=== PATIENT | male | born 1940 | race Caucasian/White ===

== ENCOUNTER → 2018-05-13 | Outpatient (CLI) | payer OTHER ==
[~2018-05-13] MED LIST: AMLO2.5T3 PO; LOSA50TA7 PO
[2018-05-13 12:55] LABS: INTERNATIONAL NORMALIZED RATIO 0.98 (0.93-1.1); PROTHROMBIN TIME 10.4 Seconds (9.6-11.5)
[2018-05-13 13:12] LABS: CULTURE INDICATED? YES; MICROSCOPIC INDICATED
[2018-05-13 13:19] LABS: HEMOGLOBIN A1C 5.4 % (4.2-6.3)
[2018-05-14 10:02] LABS: BASOPHILS # (AUTO) 0.06 x10^3/uL (0-0.1); BASOPHILS % (AUTO) 1 % (0-1); EOSINOPHILS # (AUTO) 0.11 x10^3/uL (0-0.4); EOSINOPHILS % (AUTO) 2 % (1-7); LYMPHOCYTES # (AUTO) 1.22 x10^3/uL (1-3.4); LYMPHOCYTES % (AUTO) 24 % (22-44); MD NO; MEAN CORPUSCULAR HEMOGLOBIN 32.5 pg (27.5-34.5); MEAN CORPUSCULAR HGB CONC 34.7 g/dL (33.2-36.2); MEAN CORPUSCULAR VOLUME 93.8 fL (81-97); MEAN PLATELET VOLUME 8.4 fL (7.4-10.4); MONOCYTES # (AUTO) 0.48 x10^3/uL (0.2-0.8); MONOCYTES % (AUTO) 9 % (2-9); NEUTROPHILS # (AUTO) 3.29 x10^3/uL (1.8-6.8); NEUTROPHILS % (AUTO) 64 % (42-75); PLATELET COUNT 249 x10^3/uL (130-400); RED BLOOD COUNT 4.55 x10^6/uL (4.38-5.82); RED CELL DISTRIBUTION WIDTH 12.9 % (9.4-14.8)
[2018-05-14 10:03] LABS: ALANINE AMINOTRANSFERASE 20 U/L (12-78); ALBUMIN 3.8 g/dL (3.4-5.0); ANION GAP 7 mmol/L (5-15); CALCIUM 8.5 mg/dL (8.5-10.1); CHLORIDE 105 mmol/L (98-107); CREATININE 0.75 mg/dL (0.7-1.3)
[2018-05-14 10:06] LABS: ALKALINE PHOSPHATASE 82 U/L (45-117); BILIRUBIN,TOTAL 0.4 mg/dL (0.2-1.0); TOTAL PROTEIN 7.3 g/dL (6.4-8.2)
== END | disposition home or self-care (01) ==
LOC: STAR 11:22
PROVIDERS: ATTEND Orthopaedic Surgery
DX: Z01.818 Encounter for other preprocedural examination (principal); M17.12 Unilateral primary osteoarthritis, left knee
CPT/HCPCS: 36415; 80053; 81001; 83036; 85025; 85610; 85730; 87077; 87081; 87086; 87186

== ENCOUNTER 2018-05-20 11:04 | Inpatient (IN) | payer OTHER ==
[~2018-05-20] VITALS: Ht 177.8 cm; Wt 74.1 kg
[~2018-05-20 11:04] MED LIST changes: +CEFAZOLIN 1,000 MG ONE; +EPINEPHRINE 1 MG/ML, 1ML ONE; +FENTANYL PF 250 MCG/5ML ONE; +GLYCOPYRROLATE 0.2MG/1ML, 5ML ONE; +KETOROLAC 60 MG/2 ML ONE; +MIDAZOLAM 1 MG/ML, 2ML ONE; +NEOSTIGMINE 1 MG/ML, 10ML ONE; +PROPOFOL 10 MG/ML, 20ML ONE; +ROCURONIUM 10MG/ML,5ML ONE; +ROPIvacaine/PF 0.2%, 20 ML ONE; +ROPIvacaine/PF 0.5%, 30 ML ONE; +SODIUM CHLORIDE 0.9% 100 ML ONE; +TRANEXAMIC ACID 100 MG/ML, 10ML ONE; +VANCOMYCIN 1,000 MG ONE
[2018-05-20 11:28] VITALS: BP 145/82
[2018-05-20] MEDS ORDERED: LACTATED RINGERS 1,000 ML IV SCH (11:32)
[2018-05-20] MEDS ORDERED: ACETAMINOPHEN 500 MG TABLET PO ONE (12:00)
[2018-05-20] MEDS ORDERED: MORPHINE SULFATE 4 MG/ML, 1ML IVPush PRN (12:00)
[2018-05-20] MEDS ORDERED: LABETALOL 5MG/ML, 20ML IV PRN (12:00)
[2018-05-20] MEDS ORDERED: hydrALAzine 20 MG/ML, 1ML IV PRN (12:00)
[2018-05-20] MEDS ORDERED: OXYcodone 5 MG/5 ML ORAL.SOL UDC PO PRN (12:00)
[2018-05-20] MEDS ORDERED: GABAPENTIN 300 MG CAPSULE PO ONE (12:00)
[2018-05-20] MEDS ORDERED: PROMETHAZINE 12.5 MG SUPP PR PRN (12:00)
[2018-05-20] MEDS ORDERED: SCOPOLAMINE PATCH, 1.5MG PATCH.TD72 TD ONE ×2 (12:00→13:00)
[2018-05-20] MEDS ORDERED: HYDROmorphone 2 MG/ML, 1ML IVPush PRN (12:00)
[2018-05-20] MEDS ORDERED: PROMETHAZINE 25 MG/ML, 1ML IM PRN ×2 (12:00)
[2018-05-20] MEDS ORDERED: ONDANSETRON ODT 8 MG PO PRN (12:00)
[2018-05-20] MEDS ORDERED: ONDANSETRON 2MG/ML, 2ML IV PRN ×2 (12:00→13:00)
[2018-05-20] MEDS ORDERED: MEPERIDINE/PF 25MG/0.5ML IVPush PRN (12:00)
[2018-05-20] MEDS ORDERED: PROMETHAZINE 25 MG/ML, 1ML IV PRN (12:00)
[2018-05-20] MEDS ORDERED: PROMETHAZINE 25 MG SUPP PR PRN (12:00)
[2018-05-20] MEDS ORDERED: PHENYLEPHRINE 10 MG/ML ONE (12:50)
[2018-05-20] MEDS: NS + 20MEQ KCL 1,000 ML IV SCH (12:55)
[2018-05-20] MEDS: CEFAZOLIN PMX 2GM/50ML 50 ML IVPB SCH ×2 (13:00→20:50)
[2018-05-20] MEDS ORDERED: MAGNESIUM HYDROXIDE 8%, 30ML UDC PO PRN (13:00)
[2018-05-20] MEDS ORDERED: ONDANSETRON 4 MG TABLET PO PRN (13:00)
[2018-05-20] MEDS ORDERED: BISACODYL 10 MG SUPP PR PRN (13:00)
[2018-05-20] MEDS ORDERED: DIPHENHYDRAMINE 50 MG CAPSULE PO PRN (13:00)
[2018-05-20] MEDS ORDERED: OXYcodone IR 5MG TABLET PO PRN (13:00)
[2018-05-20] MEDS ORDERED: HYDROmorphone 1 MG/ML, 1ML IV PRN (13:00)
[2018-05-20] MEDS ORDERED: SENNA/DOCUSATE TABLET PO PRN (13:00)
[2018-05-20] MEDS ORDERED: ACETAMINOPHEN 650 MG/20.3 ML UDC PO PRN (13:00)
[2018-05-20] MEDS ORDERED: ZOLPIDEM 5MG TABLET PO PRN (13:00)
[2018-05-20] MEDS ORDERED: OXYcodone 5 MG/5 ML ORAL.SOL UDC ONE (14:46)
[2018-05-20] MEDS ORDERED: FENTANYL PF 100 MCG/2ML ONE (14:46)
[2018-05-20] MEDS: FENTANYL PF 100 MCG/2ML IV PRN ×2 (14:49→15:02)
[2018-05-20] MEDS: ASPIRIN 81 MG TABLET EC PO SCH (17:20)
[2018-05-20] MEDS: DOCUSATE 100 MG CAPSULE PO SCH (20:50)
[2018-05-20 20:52] VITALS: BP 126/82
[2018-05-21 00:48] VITALS: BP 138/73
[2018-05-21] MEDS ORDERED: CEFAZOLIN PMX 2GM/50ML 50 ML IVPB SCH (05:00)
[2018-05-21 05:12] VITALS: BP 124/69
[2018-05-21] MEDS: NS + 20MEQ KCL 1,000 ML IV SCH ×2 (05:14→13:55)
[2018-05-21] MEDS ORDERED: DEXAMETHASONE 4 MG/ML, 1ML IVPush SCH (06:00)
[2018-05-21] MEDS: ASPIRIN 81 MG TABLET EC PO SCH ×2 (06:12→17:06)
[2018-05-21 08:56] VITALS: BP 123/67
[2018-05-21] MEDS: AMLODIPINE 2.5 MG TABLET PO SCH (09:23)
[2018-05-21] MEDS: LOSARTAN 25MG TABLET PO SCH (09:23)
[2018-05-21] MEDS: DOCUSATE 100 MG CAPSULE PO SCH ×2 (09:23→19:52)
[2018-05-21] MEDS: HYDROcodone/APAP 5/325 TABLET PO PRN ×2 (13:34→19:52)
[2018-05-21] MEDS ORDERED: OXYC5CAP2 PO (14:25)
[2018-05-21] MEDS ORDERED: TRAM50TA2 PO (14:25)
[2018-05-21] MEDS ORDERED: MELO7.5T31 PO (14:26)
[2018-05-21 15:32] VITALS: BP 113/60
[2018-05-21 19:10] VITALS: BP 131/59
[2018-05-22 01:09] VITALS: BP 149/68
[2018-05-22] MEDS: NS + 20MEQ KCL 1,000 ML IV SCH (01:22)
[2018-05-22] MEDS: ASPIRIN 81 MG TABLET EC PO SCH (06:14)
[2018-05-22 07:52] VITALS: BP 128/67
[2018-05-22] MEDS: LOSARTAN 25MG TABLET PO SCH (08:20)
[2018-05-22] MEDS: DOCUSATE 100 MG CAPSULE PO SCH (08:20)
[2018-05-22] MEDS: AMLODIPINE 2.5 MG TABLET PO SCH (08:20)
== END 2018-05-22 12:47 | disposition home health service (06) | DRG 470 ==
LOC: OUT 11:04 → ORIP 12:55 → 4NOR 16:02
PROVIDERS: ADMIT Orthopaedic Surgery; ATTEND Orthopaedic Surgery
PROC: 3E0T3BZ Introduction of Anesthetic Agent into Peripheral Nerves and Plexi, Percutaneous Approach (ICD-10-PCS; 2018-05-20)
PROC: 0SRD0J9 Replacement of Left Knee Joint with Synthetic Substitute, Cemented, Open Approach (ICD-10-PCS; principal; 2018-05-20 13:00)
DX: M17.12 Unilateral primary osteoarthritis, left knee (principal); I10 Essential (primary) hypertension
CPT/HCPCS: 36415; J3490; 85014; 85018; C1713; G0378; J0171; J0690; J1100; J1885; J2250; J2704; J2710; J2795; J3010; J3370; J3480; C1776; J2370; J7120